=== PATIENT | female | born 1980 | race Caucasian/White ===

== ENCOUNTER 2017-08-19 21:17 | Emergency (ER) | payer SELFPAY ==
[~2017-08-19] VITALS: Ht 165.1 cm; Wt 81.6 kg
[2017-08-19 21:27] VITALS: BP_SYST 140
--- NOTE | 2017-08-19 21:27 | NUR ---
Patient to ER bed 8 to gown for evaluation. Side rails up. Report given to CASSANDRA ADAMS.
--- NOTE | 2017-08-19 21:30 | NUR ---
Patient AAO x4, sitting in bed, c/o red bump to left labia and right posterior upper thigh, redness and swelling noted to bumps. Patient state she does shave as primary source of hair maintenace. No acute distress noted. Will continue to monitor.
--- NOTE | 2017-08-19 21:49 | NUR ---
KARLY Riley at bedside examining patient.
[2017-08-19] MEDS ORDERED: CEPHALEXIN 500 MG CAPSULE PO ONE (22:00)
[2017-08-19] MEDS ORDERED: SULFAMETHOXAZOLE/TRIMETHOPR DS 1 TABLET PO ONE (22:00)
[2017-08-19] MEDS ORDERED: LIDOCAINE 1% 10 MG/ML, 20 ML MDV IJ ONE (22:00)
--- NOTE | 2017-08-19 22:15 | NUR ---
Dr. Smith at bedside performing I&D procedure on patient abscess. No adverse reactions noted.
[2017-08-19] MEDS ORDERED: HYDROcodone/ACETAMIN 5-325 MG TAB (NORCO/ VICODIN) PO ONE (22:30)
[2017-08-19 22:47] VITALS: BP_SYST 130
--- NOTE | 2017-08-19 22:47 | NUR ---
Patient given written and verbal discharge instructions and verbalizes understanding. ER MD Dr. Smith discussed with patient the results and treatment provided. Patient in stable condition. ID arm band removed. Rx of Keflex, and Bactrim given. Patient educated on pain management and to follow up with PMD. Pain Scale 0/10. Opportunity for questions provided and answered.
== END 2017-08-19 22:47 | disposition home or self-care (01) ==
LOC: SED 21:17
DX: N76.4 Abscess of vulva (principal); L02.31 Cutaneous abscess of buttock; N75.1 Abscess of Bartholin's gland
CPT/HCPCS: 56405; 99284; J2001